=== PATIENT | male | born 1955 | race Caucasian/White ===

== ENCOUNTER → 2023-10-19 09:52 | Outpatient (REF) | payer OTHER, SELFPAY | LOC: HWRAD 09:52 | PROVIDERS: ATTENDING PHYSICIAN Surgery Vascular Surgery; FAMILY PHYSICIAN Internal Medicine Geriatric Medicine | DX: I71.21 Aneurysm of the ascending aorta, without rupture (principal) | CPT/HCPCS: 71275; Q9967 ==

== ENCOUNTER → 2024-01-04 08:46 | Outpatient (REF) | payer OTHER, SELFPAY | LOC: RCS 08:46 | PROVIDERS: ATTENDING PHYSICIAN Nuclear Medicine Nuclear Cardiology; FAMILY PHYSICIAN Internal Medicine Geriatric Medicine | DX: I50.20 Unspecified systolic (congestive) heart failure (principal); I42.9 Cardiomyopathy, unspecified | CPT/HCPCS: 93306 ==

== ENCOUNTER → 2024-05-23 09:31 | Outpatient (REF) | payer OTHER, SELFPAY | LOC: HWRAD 09:31 | PROVIDERS: ATTENDING PHYSICIAN Specialist; FAMILY PHYSICIAN Internal Medicine Geriatric Medicine | DX: N20.0 Calculus of kidney (principal) | CPT/HCPCS: 74018 ==

== ENCOUNTER → 2024-08-16 14:06 | Outpatient (REF) | payer OTHER, SELFPAY | LOC: HWRAD 14:06 | PROVIDERS: ATTENDING PHYSICIAN Specialist; FAMILY PHYSICIAN Internal Medicine Geriatric Medicine | DX: R31.0 Gross hematuria (principal) | CPT/HCPCS: 76770 ==

== ENCOUNTER → 2024-08-23 08:23 | Outpatient (REF) | payer OTHER, SELFPAY | LOC: HWRCS 08:23 | PROVIDERS: ATTENDING PHYSICIAN Nuclear Medicine Nuclear Cardiology; FAMILY PHYSICIAN Internal Medicine Geriatric Medicine | DX: I10 Essential (primary) hypertension (principal); I42.9 Cardiomyopathy, unspecified; R06.02 Shortness of breath | CPT/HCPCS: 78452; 93017; A9500; J2785 ==

== ENCOUNTER 2024-09-12 06:22 | Day surgery (SDC) | payer OTHER, SELFPAY ==
[2024-09-05 08:52] LABS: Hematocrit 41.1 % (39.0-52.0); Hemoglobin 13.7 g/dL (13.0-18.0); Mean Corp Hgb Conc. 33.3 g/dL (33.0-37.0); Mean Corpuscular Hgb 31.7 pg (27.0-31.0); Mean Corpuscular Volume 95.1 fL (80.0-94.0); Platelet Count 146 10^3/uL (130-400); Red Blood Cell Count 4.32 10^6/uL (4.70-6.10); Red Cell Dist. Width 13.2 % (11.5-14.5); White Blood Cell Count 5.9 10^3/uL (4.8-10.8)
[2024-09-05 09:42] LABS: Blood Urea Nitrogen 19 mg/dl (9-20); Calcium 9.7 mg/dl (8.4-10.2); Carbon Dioxide 25 mmol/L (22-30); Chloride 102 mmol/L (98-107); Glucose 101 mg/dl (70-99); Potassium 4.1 mmol/L (3.5-5.1); Sodium 138 mmol/L (135-145); eGFR > 60.00
[2024-09-05 14:10] VITALS: BMI 31.1
[2024-09-12] VITALS (17 sets, daily range): BP systolic 94–136; BP diastolic 48–86; BMI 31.1
[2024-09-12] MEDS: NORMOSOL-R/PLASMALYTE-A 1000 IV (08:40)
[2024-09-12] MEDS: CYSVIEW KIT 100 MG INTRAVES (08:50)
--- NOTE | 2024-09-12 11:14 | W.SUR.POST ---
Surgical Immediate Post Op
Note
Pre Op Diagnosis:
bladder tumor
Post Op Diagnosis:
Procedure Performed: turbt with blue light
Primary Surgeon: africa
Secondary Surgeons:
Anesthesia:
general dr alan
Estimated Blood Loss:
Fluids:
nss
Drains/Shunts: [address]
Specimens/Cultures: bladder tumor and prostatic urethra
Doppler/Duplex/Angio (Y/N):
Complications: 0
Operative Findings: lg 5cm tumor rt lat wall removed
[2024-09-12] MEDS: DILAUDID 0.5 MG IV (12:08)
[2024-09-12] MEDS: VALIUM INJECTION 5 MG IV (12:33)
[2024-09-12] MEDS: SYRINGE NON-PUMP 50 MG IRRIG (12:46)
[2024-09-12] MEDS: SYRINGE NON-PUMP 50 ML IRRIG (12:46)
[2024-09-12] MEDS: DETROL LA 4 MG PO ×2 (13:58→22:19)
--- NOTE | 2024-09-12 15:02 | PTCARENOTE ---
Pt received from PACU, VSS. CBI infusing at a slow rate, bags 3 and 4 hanging, urine output is pink with no clots. Pt complains of mild discomfort around catheter site. Answered all questions.
[2024-09-12] MEDS: ANCEF 10 IV (18:21)
[2024-09-12] MEDS: ZETIA 10 MG PO (21:50)
[2024-09-12] MEDS: VITAMIN D3 (cholecalciferol) 50 MCG PO (21:50)
[2024-09-12] MEDS: PEPCID 20 MG PO (21:50)
[2024-09-12] MEDS: LIPITOR 80 MG PO (21:51)
[2024-09-12] MEDS: NON-FORMULARY ITEM 1 MG PO (21:51)
[2024-09-12] MEDS: TOPROL XL 12.5 MG PO (21:55)
[2024-09-13] MEDS: ANCEF 10 IV ×2 (00:14→07:57)
[2024-09-13 03:12] VITALS: BP 102/69
[2024-09-13] MEDS: VALIUM INJECTION 5 MG IV (04:34)
[2024-09-13 07:50] VITALS: BP 96/63
[2024-09-13] MEDS: DULCOLAX 15 MG PO (07:57)
[2024-09-13 07:59] LABS: Hematocrit 35.7 % (39.0-52.0)
--- NOTE | 2024-09-13 08:59 | W.DCSUMMARY ---
Discharge Summary
Discharge Data
Date of Admission: 09/12/24
Date of Discharge: 09/13/24
-
Pending Results: Yes
Additional Pending Results:
pathology
Hospital Course
pt with a bladder mass resected yesterday path pending Stable over night ho,e with harper off eliquis
Discharge Plan
-
Patient Disposition: Home (Routine Discharge)
Discharge Diagnosis/Procedures: bladder mass path pending
Condition: Good
Diet: No restrictions
Activity: No restrictions
Wound Care: keep harper as long as possible e=xpect blood on off in tubing Increase fluids when see blood
Referrals:
Neno Monroy MD [Active] - (call if fever chills hold eliquis until september 21 but expect blood in urine on / off x weeks[s])
Jack Green MD [Family Provider] -
Prescriptions:
Continued
atorvastatin [Lipitor] 80 mg Tablet
80 mg PO HS
trazodone 50 mg Tablet
50 mg PO HS PRN (Reason: sleep)
ciprofloxacin HCl [Cipro] 500 mg Tablet
500 mg PO Q12H
famotidine [Pepcid AC] 20 mg Tablet
20 mg PO HS
bisacodyl 5 mg Tablet,Delayed Release (Dr/Ec)
15 mg PO ONCE PRN (Reason: constipation)
alprazolam [Xanax] 2 mg Tablet
2 mg PO PRN PRN (Reason: pre procedure anxiety)
ezetimibe 10 mg Tablet
10 mg PO HS
solifenacin [Vesicare] 5 mg Tablet
5 mg PO HS
quetiapine [Seroquel XR] 400 mg Tablet Extended Release 24 Hr
400 mg PO HS
Eliquis 5 mg Tablet
5 mg PO BID
metoprolol succinate [Toprol XL] 25 MG tablet extended release 24 hr
12.5 mg PO HS
cholecalciferol (vitamin D3) [Vitamin D3] 50 mcg (2,000 unit) Capsule
50 mcg PO HS
Discharge Date and Time
Print Language: BERMUDIAN
--- NOTE | 2024-09-13 10:00 | CM ---
CM following re: discharge planning.
Reviewed pt's chart, met with pt.
Pt is a 69 year old male, admitted with primary dx of Bladder mass, consistent with carcinoma.
Pt reports he lives with life partner in a condo, 2 steps to enter. 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
CM consult to arrange VN services for Art care noted. Discussed it with the pt, expressed his agreement. VN choices provided. pt preferred [facility]. A referral to [facility] made.
Please fax discharge instructions to [facility] at [phone]
Discharge order noted. Pt is aware, expressed his agreement and he stated his partner is coming to transport home.
PCP: Jack Green
Pharmacy: [facility]
D/C plan: home with [facility]. Partner to transport.
--- NOTE | 2024-09-13 11:02 | VNURNOTE ---
Home health liaison met with patient to discuss [facility] services, visit scheduling/frequency, homebound status and pet policy. Patient understands home visits will be 1-2 times a week to assess and teach medical management. Patient requests the
visiting nurse contact his partner Lakhwinder for start of care visit and aware nurse be contact within 1-2 days after discharge from . Patient also made aware to take home harper supplies (leg bag/overnight bag) and make sure he knows how to empty harper
bag prior to leaving hospital. Patient states understanding. [facility] Referral completed in care port
[2024-09-13 11:35] VITALS: BP 98/59
== END 2024-09-13 14:20 | disposition home or self-care (01) ==
LOC: SDS 06:22
PROVIDERS: ATTENDING PHYSICIAN Specialist; FAMILY PHYSICIAN Internal Medicine Geriatric Medicine
DX: C67.9 Malignant neoplasm of bladder, unspecified (principal)
CPT/HCPCS: 52240; 55700; C9738; 88305; 88307; 36415; 80048; 85014; 85018; 85027; 87086; A9589; J9201

== ENCOUNTER → 2024-10-31 08:21 | Outpatient (REF) | payer OTHER, SELFPAY | LOC: RAD 08:21 | PROVIDERS: ATTENDING PHYSICIAN Nuclear Medicine Nuclear Cardiology; FAMILY PHYSICIAN Internal Medicine Geriatric Medicine | DX: I71.21 Aneurysm of the ascending aorta, without rupture (principal); I10 Essential (primary) hypertension; I42.9 Cardiomyopathy, unspecified; R06.02 Shortness of breath | CPT/HCPCS: 71275; Q9967 ==

== ENCOUNTER 2024-11-14 06:14 | Day surgery (SDC) | payer OTHER, SELFPAY ==
[2024-11-14] VITALS (13 sets, daily range): BP systolic 98–139; BP diastolic 57–99; BMI 30.1
[2024-11-14] MEDS: NORMOSOL-R/PLASMALYTE-A 1000 IV (06:40)
--- NOTE | 2024-11-14 08:15 | W.PN.URO.CBU ---
Today's Communication / Plan
-
expect bladder spasms History of harper intolerance
Assessment / Plan
-
urine clear rey comtinie cbi hand irrigate prn clots
Diagnosis
-
Date of Service: November 14, 2024
-
had bladder cancer with prostatic urethral involvemet here for turp
Post Op Day: 0
Subjective
-
yhates harper
Objective
-
Vital Signs
Temp Pulse Resp BP Pulse Ox
98.2 F 77 18 110/74 95
11/14/24 06:23 11/14/24 06:23 11/14/24 06:23 11/14/24 06:23 11/14/24 06:23
Review of Systems
-
: Difficulty Voiding
Physical Exam
-
General - well developed, well nourished, no acute distress
Chest - clear bilaterally
Abdomen - soft, non-tender, positive bowel sounds, no CVAT, no incisional pain or distention
Genitalia - normal
Rectal - normal
Skin - warm & dry with no rash
Neuro - AOx3, no motor deficits
Extremities - no clubbing, no cyanosis, no edema
Incision - clean, dry
Dressing - clean, dry, intact
Care Review
Data Reviewed
Discussed with: Nursing
[2024-11-14] MEDS: DILAUDID 0.5 MG IV (08:48)
[2024-11-14] MEDS: DETROL LA 4 MG PO (08:50)
--- NOTE | 2024-11-14 10:02 | PTCARENOTE ---
Pt arrived to [facility] at 0940 from PACU in a bed on 2L of O2 at 97%. CBI running through 3 way harper clear urine. Pt oriented to room and call sweeney. Bed locked and in lowest position. Care ongoing.
[2024-11-14] MEDS: LR 1000 IV (10:08)
[2024-11-14] MEDS: ANCEF 5 IV ×2 (13:29→22:05)
[2024-11-14] MEDS: VALIUM INJECTION 5 MG IV (19:44)
[2024-11-14] MEDS: ZETIA 10 MG PO (22:05)
[2024-11-14] MEDS: TOPROL XL 12.5 MG PO (22:05)
[2024-11-14] MEDS: VITAMIN D3 (cholecalciferol) 50 MCG PO (22:05)
[2024-11-14] MEDS: VESICARE 5 MG PO (22:05)
[2024-11-14] MEDS: LIPITOR 80 MG PO (22:05)
[2024-11-14] MEDS: SEROQUEL 200 MG PO (22:05)
[2024-11-15] MEDS: LR 1000 IV (01:04)
[2024-11-15] MEDS: PERCOCET 5/325 1 TABLET PO ×2 (01:04→21:49)
[2024-11-15 03:00] VITALS: BP 112/63
[2024-11-15] MEDS: ANCEF 5 IV ×2 (05:16→21:48)
[2024-11-15 07:10] VITALS: BP 135/84
[2024-11-15 07:24] LABS: Hematocrit 37.2 % (39.0-52.0); Hemoglobin 12.2 g/dL (13.0-18.0)
--- NOTE | 2024-11-15 09:34 | W.PN.URO.CBU ---
Today's Communication / Plan
-
stop cbi encourage oob advance diet harper out am
Assessment / Plan
-
urine clear rey stop cbi and observe for bleeding f stable harper out am and home
Diagnosis
-
Date of Service: November 15, 2024
-
Patient Diagnosis:
Post Op Day:
had bladder cancer with prostatic urethral involvemet here for turp
Post Op Day: 0
Subjective
-
bladder pain as expected
Objective
-
Vital Signs
Temp Pulse Resp BP Pulse Ox
97.7 F 72 18 135/84 95
11/15/24 07:10 11/15/24 07:10 11/15/24 07:10 11/15/24 07:10 11/15/24 07:10
Intake and Output
11/14/24 11/15/24 11/16/24
06:59 06:59 06:59
Intake Total 2059
Output Total 4100 / 4100 75 / 75
Balance -2039 / -2039 -75 / -75
Intake:
Oral fluids 960 / 960
IV fluids (Total) 1100 / 1100
Normosol 200 / 200
Output:
True Urine Output from CBI 4100 / 4100 75 / 75
Laboratory Results
11/15/24 06:35
Review of Systems
-
: Bleeding and Dark Urine
Physical Exam
-
General - well developed, well nourished, no acute distress
Chest - clear bilaterally
Abdomen - soft, non-tender, positive bowel sounds, no CVAT, no incisional pain or distention
Genitalia - normal
Rectal - normal
Skin - warm & dry with no rash
Neuro - AOx3, no motor deficits
Extremities - no clubbing, no cyanosis, no edema
Incision - clean, dry
Dressing - clean, dry, intact
Care Review
Data Reviewed
Discussed with: Nursing
[2024-11-15 11:13] VITALS: BP 120/72
[2024-11-15 12:03] VITALS: BP 133/75
--- NOTE | 2024-11-15 12:43 | CM ---
Attempted to do initial assessment. Patient sound asleep.
[2024-11-15 15:40] VITALS: BP 151/83
[2024-11-15] MEDS: LR IV (16:01)
[2024-11-15] MEDS: ANCEF IV (16:01)
--- NOTE | 2024-11-15 17:44 | DOWNTIME ---
There was a [employer] Downtime on 11/15/2024 from 1230 to 11/15/2024 at 1550. Downtime documentation of patient's care, including medication administrations, has been reconciled in the electronic record per guidelines. Refer to the
patient's paper chart under the miscellaneous tab to see printed paper medication records and downtime forms.
[2024-11-15] MEDS: VESICARE 5 MG PO (21:48)
[2024-11-15] MEDS: ZETIA 10 MG PO (21:48)
[2024-11-15] MEDS: SEROQUEL 200 MG PO (21:48)
[2024-11-15] MEDS: LIPITOR 80 MG PO (21:48)
[2024-11-15] MEDS: VITAMIN D3 (cholecalciferol) 50 MCG PO (21:49)
[2024-11-15] MEDS: TOPROL XL 12.5 MG PO (21:53)
[2024-11-15 23:29] VITALS: BP 120/81
[2024-11-16] MEDS: ANCEF 5 IV (06:25)
[2024-11-16 07:35] VITALS: BP 133/80
--- NOTE | 2024-11-16 07:54 | W.PN.URO.CBU ---
Today's Communication / Plan
-
home when ride avaiable
Assessment / Plan
-
urine clear rey stop cbi pt is stable harper out am thursay and home
Diagnosis
-
Date of Service: November 16, 2024
-
Patient Diagnosis:
Post Op Day:
Patient Diagnosis:
Post Op Day:
had bladder cancer with prostatic urethral involvemet here for turp
Post Op Day: 0
Subjective
-
foleu=y out voiding
Objective
-
Vital Signs
Temp Pulse Resp BP Pulse Ox
98.2 F 100 18 120/81 97
11/15/24 23:29 11/15/24 23:29 11/15/24 23:29 11/15/24 23:29 11/15/24 23:29
Intake and Output
11/15/24 11/16/24 11/17/24
06:59 06:59 06:59
Intake Total 2059 / 2059 480 / 480
Output Total 4100 / 4100 2825 / 2825
Balance -0 / -0 -5 / -2345
Intake:
Oral fluids 960 / 960 480 / 480
IV fluids (Total) 1100 / 1100
Normosol 200 / 200
Output:
Urine, Harper 2750 / 2750
True Urine Output from CBI 4100 / 4100 75 / 75
Laboratory Results
11/15/24 06:35
Review of Systems
-
Abdomen/GI: No Symptoms
: No Symptoms
Physical Exam
-
General - well developed, well nourished, no acute distress
Chest - clear bilaterally
Abdomen - soft, non-tender, positive bowel sounds, no CVAT, no incisional pain or distention
Genitalia - normal
Rectal - normal
Skin - warm & dry with no rash
Neuro - AOx3, no motor deficits
Extremities - no clubbing, no cyanosis, no edema
Incision - clean, dry
Dressing - clean, dry, intact
Care Review
Data Reviewed
Discussed with: Nursing
[2024-11-16] MEDS: SEROQUEL 200 MG PO (07:58)
[2024-11-16] MEDS: TYLENOL 650 MG PO (08:04)
--- NOTE | 2024-11-16 10:48 | PTCARENOTE ---
Verified with [facility] that they did receive a script from Dr Monroy for Seroquel ER 400 mg. Per pharmacy staff medication is currently out of stock and will not be able to be picked up until tomorrow 11/17/24 after 1800. Pt informed and
verbalized understanding, pt ok with missing dose for today and not picking up medication until tomorrow night. Pt discharged with friend.
--- NOTE | 2024-11-16 11:07 | CM ---
11/15/2024 2:44 PM (ET) [place]:
Initial assessment completed with patient who lives with his partner in a 2 story townhouse with B/B on 2nd floor and 1/2 bath on 1st, 3 steps to enter. 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 He has a RW from past hospitalization.
Also has a defibrillator in place. Patient drives occasionally. No in-home services. Does have a HC-POA. No service. PCP is Jack Green and Pharmacy is [facility] in [place]. Discharge POC: Harper to be removed on 11/16/24. If so, no needs.
If harper remains in place, would like VN.
--- NOTE | 2024-11-16 11:08 | CM ---
Patient has been medically cleared for discharge to home with no additional skilled services. Art has been removed. Partner will transport home.
--- NOTE | 2024-11-16 12:59 | PTCARENOTE ---
Pts home Seroquel found in pharmacy storage. RN attempted to call [phone] (only phone number listed in the chart)x2, no answer. Voicemail left informing pt we have his medication to be picked up, call back number provided. Medication currently
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
== END 2024-11-16 10:55 | disposition home or self-care (01) ==
LOC: SDS 06:14
PROVIDERS: ATTENDING PHYSICIAN Specialist
DX: N40.0 Benign prostatic hyperplasia without lower urinary tract symptoms (principal); C67.9 Malignant neoplasm of bladder, unspecified
CPT/HCPCS: 52601; 88305; 85014; 85018; 88341; 88342

== ENCOUNTER → 2025-04-27 07:57 | Outpatient (REF) | payer OTHER, SELFPAY | LOC: RAD 07:57 | PROVIDERS: ATTENDING PHYSICIAN Internal Medicine Geriatric Medicine | DX: G90.2 Horner's syndrome (principal); H57.02 Anisocoria | CPT/HCPCS: 70496; 70498; 71046; Q9967 ==

== ENCOUNTER → 2025-05-15 12:13 | Outpatient (REF) | payer OTHER, SELFPAY | LOC: RCS 12:13 | PROVIDERS: ATTENDING PHYSICIAN Nuclear Medicine Nuclear Cardiology; FAMILY PHYSICIAN Internal Medicine Geriatric Medicine | DX: I10 Essential (primary) hypertension (principal) | CPT/HCPCS: 93306 ==